=== PATIENT | male | born 1960 | race Caucasian/White ===

== ENCOUNTER → 2018-06-14 | Outpatient (CLI) | payer OTHER | END | disposition home or self-care (01) | LOC: LAB 08:20 | DX: D68.8 Other specified coagulation defects (principal); E78.2 Mixed hyperlipidemia; N39.0 Urinary tract infection, site not specified ==

== ENCOUNTER 2019-04-11 09:16 | Outpatient (CLI) | payer OTHER | END 2019-04-11 09:18 | disposition home or self-care (01) | LOC: SONOGRAMA 09:16 | DX: M75.52 Bursitis of left shoulder (principal) ==